=== PATIENT | female | born 1970 | race African-American/Black ===

== ENCOUNTER 2016-07-25 22:21 | Emergency (ER) | payer OTHER, SELFPAY ==
--- NOTE | 2016-07-25 22:56 | RAD ---
PORTABLE CHEST: 07/25/16 COMPARISON: 09/05/15 study. HISTORY: Chest pain. Heart size is within normal limits. Mediastinal structures appear unremarkable. Lungs are clear of i nfiltrates. IMPRESSION: No active intrathoracic disease. Heart size upper limits of normal. POS: [facility]
[2016-07-25 23:01] LABS: #Eosinphils 0.1 thou/uL (0.0-0.7); #Lymphocytes 1.5 thou/uL (1.20-3.40); #Monocytes 0.3 thou/uL (0.11-0.59); #Neutrophils 2.9 thou/uL (1.40-6.50); %Basophils 0.4 % (0.0-1.0); %Eosinophils 1.9 % (0.0-10.0); %Lymphocytes 31.1 % (21.0-51.0); %Neutrophils 59.5 % (42.0-75.0); Hemoglobin 9.3 g/dL (12.0-16.0); MDiff Complete? YES; Mean Corpuscular HGB CONC 29.5 g/dL (32.0-36.0); Mean Corpuscular Hemoglobin 17.4 pg (27.0-31.0); Mean Corpuscular Volume 58.9 fl (81.0-99.0); Microcytosis MODERATE=15-30 cells (100X) (0-5/hpf); Ovalocytes SLIGHT = 2-5 cells (100X) (0-1/hpf); PLT Morphology Comment Appears Adequate; Platelet Count 259 thou/uL (130-400); RBC Distribution Width 15.5 % (11.5-14.5); Red Blood Cell (RBC) Count 5.36 mill/uL (4.20-5.40); White Blood Cell (WBC) Count 4.9 thou/uL (4.8-10.8)
[2016-07-25 23:16] LABS: Troponin I Less than 0.010 ng/mL (< 0.028)
[2016-07-25 23:17] LABS: ALT (SGPT) 11 U/L (0-55); AST (SGOT) 14 U/L (5-34); Albumin 3.6 g/dL (3.5-5.0); Alkaline Phosphatase 77 U/L (40-150); Anion Gap 14 mmol/L (10-20); BUN (Urea Nitrogen) 10 mg/dL (7.0-18.7); Bilirubin, Total 0.3 mg/dL (0.2-1.2); Calc. Creatinine Clearance 0 mL/min (70-130); Calcium 8.5 mg/dL (7.8-10.44); Carbon Dioxide 23 mmol/L (22-29); Chloride 106 mmol/L (98-107); Estimated GFR-MDRD 90; Globulin 3.3 g/dL (2.4-3.5); Glucose 91 mg/dL (70-105); Potassium 3.9 mmol/L (3.5-5.1); Protein, Total 6.9 g/dL (6.0-8.3); Sodium 139 mmol/L (136-145)
== END 2016-07-25 23:36 | disposition home or self-care (01) ==
LOC: NAV ER/OP 22:21 → NAV ERS 23:36
DX: R07.9 Chest pain, unspecified (principal); D64.9 Anemia, unspecified; I10 Essential (primary) hypertension; F41.9 Anxiety disorder, unspecified; Z87.891 Personal history of nicotine dependence; Z79.899 Other long term (current) drug therapy; Z79.82 Long term (current) use of aspirin
CPT/HCPCS: 36415; 71010; 80053; 82553; 84484; 85025; 93005

== ENCOUNTER 2016-09-06 11:51 | Emergency (ER) | payer OTHER, SELFPAY ==
[2016-09-06 12:39] LABS: ALT (SGPT) 17 U/L (8-55); AST (SGOT) 18 U/L (5-34); Albumin 3.9 g/dL (3.5-5.0); Alkaline Phosphatase 60 U/L (40-150); Anion Gap 16 mmol/L (10-20); BUN (Urea Nitrogen) 11 mg/dL (7.0-18.7); Bilirubin, Total 0.6 mg/dL (0.2-1.2); CK (CPK) 89 U/L (29-168); Calc. Creatinine Clearance 0 mL/min (70-130); Calcium 8.9 mg/dL (7.8-10.44); Carbon Dioxide 18 mmol/L (22-29); Chloride 107 mmol/L (98-107); Estimated GFR-MDRD Greater than 90; Globulin 3.3 g/dL (2.4-3.5); Glucose 84 mg/dL (70-105); Lipase 30 U/L (8-78); Protein, Total 7.2 g/dL (6.0-8.3); Sodium 137 mmol/L (136-145)
[2016-09-06 12:40] LABS: #Eosinphils 0.1 thou/uL (0.0-0.7); #Lymphocytes 1.5 thou/uL (1.20-3.40); #Monocytes 0.3 thou/uL (0.11-0.59); #Neutrophils 2.4 thou/uL (1.40-6.50); %Eosinophils 1.8 % (0.0-10.0); %Lymphocytes 33.9 % (21.0-51.0); %Neutrophils 57.3 % (42.0-75.0); Anisocytosis SLIGHT = 6-15 cells (100X) (0-5/hpf); Hemoglobin 10.4 g/dL (12.0-16.0); Hypochromia SLIGHT = 6-15 cells (100X) (0-5/hpf); MDiff Complete? YES; Mean Corpuscular HGB CONC 29.3 g/dL (32.0-36.0); Mean Corpuscular Volume 61.4 fl (81.0-99.0); Mean Platelet Volume 6.3 fL (7.4-10.4); Microcytosis SLIGHT = 6-15 cells (100X) (0-5/hpf); PLT Morphology Comment Appears Adequate; Platelet Count 234 thou/uL (130-400); RBC Distribution Width 15.9 % (11.5-14.5); White Blood Cell (WBC) Count 4.3 thou/uL (4.8-10.8)
[2016-09-06 12:41] LABS: CKMB 1.5 ng/mL (0-6.6); Troponin I Less than 0.010 ng/mL (< 0.028)
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
== END 2016-09-06 13:07 | disposition home or self-care (01) ==
LOC: NAV ERS 11:51
DX: F41.9 Anxiety disorder, unspecified (principal); I10 Essential (primary) hypertension; E66.9 Obesity, unspecified; Z87.891 Personal history of nicotine dependence; Z79.899 Other long term (current) drug therapy; Z79.82 Long term (current) use of aspirin
CPT/HCPCS: 71010; 80053; 82550; 82553; 83690; 83880; 84484; 85025; 93005; 94760

== ENCOUNTER 2016-10-25 05:12 | Emergency (ER) | payer SELFPAY ==
[2016-10-25] MEDS ORDERED: Sodium Chloride 0.9% 1,000 ML ONE (05:34)
[2016-10-25] MEDS ORDERED: Ketorolac Tromethamine 30 MG/ML VIAL ONE (05:34)
[2016-10-25 05:39] LABS: Bilirubin Negative (Negative); Blood, Urine Large (Negative); Clarity Slightly Cloudy (Clear); Glucose, Urine (Dipstick) Negative (Negative); Leukocyte Trace (Negative); Nitrite Negative (Negative); Protein, Urine (Dipstick) Trace mg/dL (Neg-Trace); Specific Gravity, Urine 1.015 (1.005-1.030); Urobilinogen 0.2 mg/dL (0.2-1.0)
[2016-10-25 05:45] LABS: RBC/HPF GREATER THAN 50-TNTC HPF (0-3)
[2016-10-25 05:46] LABS: Bacteria/HPF Rare-Few HPF (None Seen); Squamous Epithelial 0-3 HPF (0-3); WBC/HPF 0-3 HPF (0-3)
--- NOTE | 2016-10-25 09:38 | CT ---
NONCONTAST ENHANCED CT IMAGES ABDOMEN AND PELVIS: HISTORY: Left-sided back pain. FINDINGS: Noncontrast-enhanced CT images abdomen and pelvis were obtained. The lung bases are unremarkable. No evidence of free intraperitoneal air is seen. The liver and spleen, gallbladder, and pancreas are unremarkable. Adrenal glands unremarkable. No evidence of renal masses or lesions seen. No evidence of hydronephrosis seen. No evidence of periaortic lymphadenopathy seen. No dilated loops of bowel seen. IMPRESSION: Normal noncontrast-enhanced CT images of the abdomen and pelvis. POS: [facility]
== END 2016-10-25 08:25 | disposition home or self-care (01) ==
LOC: NAV ERS 05:12
DX: N39.0 Urinary tract infection, site not specified (principal); I10 Essential (primary) hypertension; E66.9 Obesity, unspecified; F41.9 Anxiety disorder, unspecified; Z87.891 Personal history of nicotine dependence; Z79.899 Other long term (current) drug therapy; Z79.82 Long term (current) use of aspirin
CPT/HCPCS: 74176; 81003; 81015; 96361; 96374; J1885; J7050

== ENCOUNTER 2017-03-04 05:30 | Emergency (ER) | payer SELFPAY ==
[2017-03-04] MEDS ORDERED: diphenhydrAMINE 50 MG/ML VIAL ONE (06:12)
[2017-03-04] MEDS ORDERED: Acetaminophen 500 MG TAB ONE (06:12)
[2017-03-04] MEDS ORDERED: Sodium Chloride 0.9% 1,000 ML ONE (06:12)
[2017-03-04] MEDS ORDERED: Metoclopramide HCl 10 MG/2 ML VIAL ONE (06:12)
[2017-03-04 07:01] LABS: INR-International Normal Ratio 1.1; PTT 31.2 SEC (22.9-36.1); Prothrombin Time 13.8 SEC (12.0-14.7)
[2017-03-04 07:10] LABS: ALT (SGPT) 17 U/L (8-55); AST (SGOT) 15 U/L (5-34); Albumin 3.5 g/dL (3.5-5.0); Alkaline Phosphatase 46 U/L (40-150); Anion Gap 11 mmol/L (10-20); BUN (Urea Nitrogen) 10 mg/dL (7.0-18.7); Bilirubin, Total 0.7 mg/dL (0.2-1.2); Calc. Creatinine Clearance 0 mL/min (70-130); Calcium 8.6 mg/dL (7.8-10.44); Carbon Dioxide 22 mmol/L (22-29); Chloride 111 mmol/L (98-107); Estimated GFR-MDRD Greater than 90; Globulin 2.7 g/dL (2.4-3.5); Glucose 93 mg/dL (70-105); Protein, Total 6.2 g/dL (6.0-8.3); Sodium 140 mmol/L (136-145)
[2017-03-04 07:21] LABS: #Lymphocytes 1.3 thou/uL (1.20-3.40); #Monocytes 0.3 thou/uL (0.11-0.59); #Neutrophils 2.7 thou/uL (1.40-6.50); %Basophils 0.8 % (0.0-1.0); %Lymphocytes 29.5 % (21.0-51.0); %Monocytes 7.6 % (0.0-10.0); %Neutrophils 61.2 % (42.0-75.0); Anisocytosis SLIGHT = 6-15 cells (100X) (0-5/hpf); Hemoglobin 9.4 g/dL (12.0-16.0); Hypochromia SLIGHT = 6-15 cells (100X) (0-5/hpf); MDiff Complete? YES; Mean Corpuscular HGB CONC 30.4 g/dL (32.0-36.0); Mean Corpuscular Hemoglobin 20.1 pg (27.0-31.0); Mean Corpuscular Volume 66.1 fl (81.0-99.0); Mean Platelet Volume 5.4 fL (7.4-10.4); Microcytosis SLIGHT = 6-15 cells (100X) (0-5/hpf); PLT Morphology Comment Appears Adequate; Platelet Count 233 thou/uL (130-400); RBC Distribution Width 16.3 % (11.5-14.5); Red Blood Cell (RBC) Count 4.68 mill/uL (4.20-5.40); White Blood Cell (WBC) Count 4.5 thou/uL (4.8-10.8)
[2017-03-04 07:46] LABS: Pregnancy Test - Urine (BHCG) Negative (Negative); Pregu Control Background? CLEAR/WHITE (CLR/WHITE); Pregu Control Bar Appear? YES (CONTROL BAR)
--- NOTE | 2017-03-04 08:22 | CT ---
PRELIMINARY REPORT/[facility]/EMERGENCY AFTER HOURS PROCEDURE: EXAM: CT Head Without Intravenous Contrast CLINICAL HISTORY: 46 years old, female; Pain; Headache; Other: Frontal; Patient HX: Pt. Woke from sleep around 0400 wit h bifrontal headache described as pulsating and waxing/waning, without radiation. Had one episode of N&V when got up, now resolved. Nisula lightheaded when attempting to ambulate, and says that symptoms a re similar to when she had anemia in the past. Reports similar headache to this at that time, but goss s not get headaches regularly. Last time she had headache like this it was worse. This is not the wor st headache of her life. No falls or trauma. TECHNIQUE: Axial computed tomography images of the head/brain without intravenous contrast. All CT scans at this facility use one or more dose reduction techniques, viz.: automated exposure control; ma/kV adjustme nt per patient size (including targeted exams where dose is matched to indication; i.e. head); or ite rative reconstruction technique. COMPARISON: No relevant prior studies available. FINDINGS: Brain: Mild volume loss No hemorrhage. No significant white matter disease. No edema. Ventricles: Unremarkable. No ventriculomegaly. Bones/joints: Unremarkable. No acute fracture. Soft tissues: Unremarkable. Sinuses: Unremarkable as visualized. No acute sinusitis. Mastoid air cells: Unremarkable as visualized. No mastoid effusion. IMPRESSION: No intracranial hemorrhage.Please see discussion above. Thank you for allowing us to participate in the care of your patient. Dictated and Authenticated by: Yan Mckoy MD 03/04/2017 6:33 AM Central Time ([place] & [place]) FINAL REPORT HEAD CT WITHOUT CONTRAST: DATE: 03/04/17. COMPARISON: None. HISTORY: Headache, lightheaded. FINDINGS: I agree with the preliminary [facility] report. Imaged paranasal sinuses/mastoid air cells well aerated. No displaced calvarial fracture. No intracranial hemorrhage, midline shift, mass effect, or ventric ular enlargement. If symptoms persist, followup brain MRI may be beneficial. IMPRESSION: Grossly unremarkable head CT. POS: [facility]
== END 2017-03-04 08:05 | disposition home or self-care (01) ==
LOC: NAV ERS 05:30
DX: R51 Headache (principal); D50.9 Iron deficiency anemia, unspecified; E11.9 Type 2 diabetes mellitus without complications; I10 Essential (primary) hypertension; E66.9 Obesity, unspecified; F41.9 Anxiety disorder, unspecified; Z87.891 Personal history of nicotine dependence; Z79.899 Other long term (current) drug therapy; Z79.82 Long term (current) use of aspirin
CPT/HCPCS: 70450; 80053; 81025; 85025; 85610; 85730; 96365; 96375; J1200; J2765; J7050

== ENCOUNTER 2017-06-02 10:39 | Emergency (ER) | payer OTHER, SELFPAY ==
[2017-06-02] MEDS ORDERED: Ibuprofen 800 MG TAB ONE (10:58)
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
== END 2017-06-02 11:34 | disposition home or self-care (01) ==
LOC: NAV ERS 10:39
DX: S90.31XA Contusion of right foot, initial encounter (principal); E11.9 Type 2 diabetes mellitus without complications; I10 Essential (primary) hypertension; E66.9 Obesity, unspecified; F41.9 Anxiety disorder, unspecified; Z87.891 Personal history of nicotine dependence; Z79.82 Long term (current) use of aspirin; Z79.899 Other long term (current) drug therapy; W23.0XXA Caught, crushed, jammed, or pinched between moving objects, initial encounter

== ENCOUNTER 2017-06-15 17:44 | Emergency (ER) | payer SELFPAY ==
[2017-06-15 18:46] LABS: #Eosinphils 0.1 thou/uL (0.0-0.7); #Lymphocytes 2.1 thou/uL (1.20-3.40); #Monocytes 0.4 thou/uL (0.11-0.59); #Neutrophils 2.5 thou/uL (1.40-6.50); %Basophils 0.9 % (0.0-1.0); %Eosinophils 1.5 % (0.0-10.0); %Monocytes 6.9 % (0.0-10.0); %Neutrophils 49.8 % (42.0-75.0); Hemoglobin 9.9 g/dL (12.0-16.0); Mean Corpuscular HGB CONC 29.7 g/dL (32.0-36.0); Mean Corpuscular Hemoglobin 19.6 pg (27.0-31.0); Mean Platelet Volume 7.2 fL (7.4-10.4); Platelet Count 213 thou/uL (130-400); RBC Distribution Width 16.2 % (11.5-14.5); Red Blood Cell (RBC) Count 5.06 mill/uL (4.20-5.40); White Blood Cell (WBC) Count 5.1 thou/uL (4.8-10.8)
[2017-06-15 18:53] LABS: BHCG - Serum Negative (NEGATIVE); Pregs Control Bar Appear? YES (CONTROL BAR)
== END 2017-06-15 19:05 | disposition home or self-care (01) ==
LOC: NAV ERS 17:44
DX: N92.0 Excessive and frequent menstruation with regular cycle (principal); D50.9 Iron deficiency anemia, unspecified; E66.9 Obesity, unspecified; E11.9 Type 2 diabetes mellitus without complications; I10 Essential (primary) hypertension; F41.9 Anxiety disorder, unspecified; Z87.891 Personal history of nicotine dependence; Z79.82 Long term (current) use of aspirin; Z79.899 Other long term (current) drug therapy
CPT/HCPCS: 84703; 85025; 99284

== ENCOUNTER 2017-09-24 09:45 | Emergency (ER) | payer OTHER | END 2017-09-24 10:18 | disposition home or self-care (01) | LOC: NAV ERS 09:45 | DX: J20.9 Acute bronchitis, unspecified (principal); E11.9 Type 2 diabetes mellitus without complications; I10 Essential (primary) hypertension; E66.9 Obesity, unspecified; F41.9 Anxiety disorder, unspecified; Z87.891 Personal history of nicotine dependence; Z79.899 Other long term (current) drug therapy; Z79.82 Long term (current) use of aspirin | CPT/HCPCS: 99283 ==

== ENCOUNTER 2017-12-13 17:05 | Emergency (ER) | payer OTHER ==
[2017-12-13 17:56] LABS: AST (SGOT) 27 U/L (5-34); Albumin 4.2 g/dL (3.5-5.0); Alkaline Phosphatase 62 U/L (40-150); Anion Gap 14 mmol/L (10-20); BUN (Urea Nitrogen) 14 mg/dL (7.0-18.7); Bilirubin, Total 0.6 mg/dL (0.2-1.2); CK (CPK) 179 U/L (29-168); Calc. Creatinine Clearance 0 mL/min (70-130); Calcium 9.8 mg/dL (7.8-10.44); Carbon Dioxide 22 mmol/L (22-29); Chloride 104 mmol/L (98-107); Estimated GFR-MDRD Greater than 90; Globulin 3.3 g/dL (2.4-3.5); Glucose 79 mg/dL (70-105); Lipase 340 U/L (8-78); Potassium 3.8 mmol/L (3.5-5.1); Protein, Total 7.5 g/dL (6.0-8.3); Sodium 136 mmol/L (136-145)
[2017-12-13 17:57] LABS: Troponin I Less than 0.010 ng/mL (< 0.028)
[2017-12-13 18:01] LABS: ALT (SGPT) 26 U/L (8-55)
[2017-12-13 18:03] LABS: #Basophils 0.1 thou/uL (0.0-0.2); #Eosinphils 0.1 thou/uL (0.0-0.7); #Lymphocytes 1.9 thou/uL (1.20-3.40); #Monocytes 0.3 thou/uL (0.11-0.59); %Basophils 1.3 % (0.0-1.0); %Eosinophils 1.2 % (0.0-10.0); %Lymphocytes 44.1 % (21.0-51.0); %Monocytes 6.1 % (0.0-10.0); %Neutrophils 47.3 % (42.0-75.0); Mean Corpuscular HGB CONC 28.7 g/dL (32.0-36.0); Mean Corpuscular Volume 66.1 fL (78.0-98.0); Mean Platelet Volume 6.3 fL (7.4-10.4); Platelet Count 211 thou/uL (130-400); RBC Distribution Width 13.8 % (11.5-14.5); White Blood Cell (WBC) Count 4.3 thou/uL (4.8-10.8)
--- NOTE | 2017-12-13 18:05 | RAD ---
CHEST ONE VIEW: 12/13/17 HISTORY: Chest pain. COMPARISON: Chest radiograph from 2017. FINDINGS: Heart size is mildly enlarged. No focal air space consolidation, pneumothorax or effusion. No acute o sseous abnormality. IMPRESSION: Mild cardiomegaly, unchanged. POS: [facility]
== END 2017-12-13 18:56 | disposition short-term general hospital (02) ==
LOC: NAV ERS 17:05
DX: R07.9 Chest pain, unspecified (principal); Z87.891 Personal history of nicotine dependence; F41.9 Anxiety disorder, unspecified; E66.9 Obesity, unspecified; I10 Essential (primary) hypertension; Z79.899 Other long term (current) drug therapy; Z79.82 Long term (current) use of aspirin
CPT/HCPCS: 71045; 80053; 82550; 82553; 83690; 84484; 85025; 93005

== ENCOUNTER 2018-02-05 16:41 | Emergency (ER) | payer OTHER ==
--- NOTE | 2018-02-05 17:36 | RAD ---
RIGHT HAND THREE VIEWS: 02/05/18 INDICATION: Fall with right hand pain. COMPARISON: None. IMPRESSION: No acute fracture or subluxation is evident. There is a degenerative subchondral cyst-like abnormalit y involving the proximal scaphoid. There is suggested healed fracture deformity involving the proxima l small finger metacarpal shaft. Soft tissues appear within normal limits. POS: [facility]
--- NOTE | 2018-02-05 18:46 | RAD ---
RIGHT WRIST THREE VIEWS: 02/05/18 INDICATION: Fall with right wrist pain. COMPARISON: None. IMPRESSION: No acute fracture or subluxation is evident. There is degenerative subchondral cyst-like abnormality involving the proximal scaphoid. There is suggested healed fracture deformity involving the left prox imal small finger metacarpal shaft. POS: [facility]
== END 2018-02-05 17:35 | disposition home or self-care (01) ==
LOC: NAV ERS 16:41
DX: S63.501A Unspecified sprain of right wrist, initial encounter (principal); I44.7 Left bundle-branch block, unspecified; I10 Essential (primary) hypertension; E66.9 Obesity, unspecified; F41.9 Anxiety disorder, unspecified; Z87.891 Personal history of nicotine dependence; W19.XXXA Unspecified fall, initial encounter

== ENCOUNTER 2018-07-03 15:38 | Emergency (ER) | payer OTHER ==
[2018-07-03] MEDS ORDERED: Aspirin Chewable 81 MG TAB ONE (15:54)
[2018-07-03] MEDS ORDERED: Nitroglycerin 2% Ointment 1 INCH/1 GM Packet ONE (15:54)
--- NOTE | 2018-07-03 16:19 | RAD ---
FChest AP view INDICATION: Chest pain COMPARISON: Prior exam dated December 13, 2017 FINDINGS: The lungs are clear. The heart size is normal. No pleural effusion or pneumothorax is evide nt. No acute osseous abnormality is noted. IMPRESSION: No acute cardiopulmonary abnormality.
[2018-07-03 16:28] LABS: ALT (SGPT) 17 U/L (8-55); AST (SGOT) 22 U/L (5-34); Albumin 3.9 g/dL (3.5-5.0); Alkaline Phosphatase 71 U/L (40-150); Anion Gap 12 mmol/L (10-20); BUN (Urea Nitrogen) 9 mg/dL (7.0-18.7); Bilirubin, Total 0.5 mg/dL (0.2-1.2); CK (CPK) 157 U/L (29-168); Calc. Creatinine Clearance 0 mL/min (70-130); Calcium 9.2 mg/dL (7.8-10.44); Carbon Dioxide 22 mmol/L (22-29); Chloride 106 mmol/L (98-107); Estimated GFR-MDRD Greater than 90; Glucose 82 mg/dL (70-105); Lipase 13 U/L (8-78); Potassium 3.6 mmol/L (3.5-5.1); Protein, Total 6.9 g/dL (6.0-8.3); Sodium 136 mmol/L (136-145)
[2018-07-03 16:29] LABS: CKMB 1.9 ng/mL (0-6.6)
[2018-07-03 16:33] LABS: #Lymphocytes 1.6 thou/uL (1.20-3.40); #Monocytes 0.2 thou/uL (0.11-0.59); #Neutrophils 1.6 thou/uL (1.40-6.50); %Basophils 0.9 % (0.0-1.0); %Eosinophils 1.4 % (0.0-10.0); %Lymphocytes 46.9 % (21.0-51.0); %Monocytes 6.2 % (0.0-10.0); %Neutrophils 44.8 % (42.0-75.0); Crenated RBC SLIGHT = 1-5 cells (100X) (None Seen); Hemoglobin 10.4 g/dL (12.0-16.0); MDiff Complete? YES; Mean Corpuscular HGB CONC 29.7 g/dL (32.0-36.0); Mean Corpuscular Hemoglobin 18.7 pg (27.0-31.0); Mean Corpuscular Volume 62.9 fL (78.0-98.0); Mean Platelet Volume 6.1 fL (7.4-10.4); Microcytosis MODERATE=15-30 cells (100X) (0-5/hpf); Ovalocytes SLIGHT = 2-5 cells (100X) (0-1/hpf); Platelet Count 213 thou/uL (130-400); Platelet Morphology Comment Appears Adequate; RBC Distribution Width 14.2 % (11.5-14.5); Red Blood Cell (RBC) Count 5.58 mill/uL (4.20-5.40); Reflex for Review?? NO; White Blood Cell (WBC) Count 3.5 thou/uL (4.8-10.8)
== END 2018-07-03 16:58 | disposition short-term general hospital (02) ==
LOC: NAV ERS 15:38
DX: R07.9 Chest pain, unspecified (principal); I45.4 Nonspecific intraventricular block; I10 Essential (primary) hypertension; F41.9 Anxiety disorder, unspecified; Z87.891 Personal history of nicotine dependence; Z79.82 Long term (current) use of aspirin; Z79.899 Other long term (current) drug therapy
CPT/HCPCS: 36415; 71045; 80053; 82550; 82553; 83690; 84484; 85025; 93005; 94760

== ENCOUNTER → 2019-09-18 | Emergency (ER) | payer SELFPAY ==
[~2019-09-18] MED LIST: Naproxen 500 MG TAB ONE; cloNIDine 0.2 MG TAB ONE
== END ==
LOC: NAV ERS 22:25
DX: R51 Headache (principal); I10 Essential (primary) hypertension; F41.9 Anxiety disorder, unspecified; Z87.891 Personal history of nicotine dependence; E66.9 Obesity, unspecified; D64.9 Anemia, unspecified; Z79.82 Long term (current) use of aspirin; Z79.899 Other long term (current) drug therapy
CPT/HCPCS: 99283

== ENCOUNTER 2020-04-01 11:17 | Emergency (ER) | payer SELFPAY ==
[2020-04-01] MEDS ORDERED: Ibuprofen 200 MG TAB ONE (11:42)
== END 2020-04-01 12:35 | disposition home or self-care (01) ==
LOC: NAV ERS 11:17
DX: J02.9 Acute pharyngitis, unspecified (principal); I10 Essential (primary) hypertension; D64.9 Anemia, unspecified; E66.9 Obesity, unspecified; Z87.891 Personal history of nicotine dependence; Z79.82 Long term (current) use of aspirin; Z79.899 Other long term (current) drug therapy
CPT/HCPCS: 87081; 87430; 99283